=== PATIENT | female | born 1945 | race Caucasian/White ===

== ENCOUNTER 2018-06-06 22:47 | Emergency (ER) | payer OTHER ==
[~2018-06-06] VITALS: Ht 152.4 cm; Wt 71.2 kg
[~2018-06-06 22:47] MED LIST: ACETAMINOPHEN325 M1 PO; ALBUTEROL INH; ALPRAZOLAM1 M1 PO; AUGMENTIN 875875 M1 PO; CELEXA20 MG PO; FLAGYL500 MG PO; LASIX 20 MG TAB20 MG PO; LEVOXYL50 MCG; LISINOPRIL10 MG PO; METFORMIN HCL500 MG PO; PEPCID AC20 M1; POTASSIUM20 PO; TRAZODONE 150150 M1 PO
[2018-06-06] MEDS ORDERED: PRESERVISION A1 EAC2 (23:03)
[2018-06-06] MEDS ORDERED: CO Q-10100 MG (23:03)
[2018-06-06] MEDS ORDERED: VITAMIN D1000 UNI1 PO (23:04)
[2018-06-06] MEDS ORDERED: KEFLEX500 M1 PO (23:12)
[2018-06-06 23:29] VITALS: BP 140/77
== END 2018-06-06 23:31 | disposition home or self-care (01) ==
LOC: M.ERS 22:47
DX: S90.411A Abrasion, right great toe, initial encounter (principal); S90.412A Abrasion, left great toe, initial encounter; S90.414A Abrasion, right lesser toe(s), initial encounter; S90.415A Abrasion, left lesser toe(s), initial encounter; F32.9 Major depressive disorder, single episode, unspecified; E03.9 Hypothyroidism, unspecified; K21.9 Gastro-esophageal reflux disease without esophagitis; E11.9 Type 2 diabetes mellitus without complications; Z90.49 Acquired absence of other specified parts of digestive tract; Z90.710 Acquired absence of both cervix and uterus; Z88.8 Allergy status to other drugs, medicaments and biological substances; X58.XXXA Exposure to other specified factors, initial encounter; Y93.89 Activity, other specified; Y92.89 Other specified places as the place of occurrence of the external cause; Y99.8 Other external cause status

== ENCOUNTER 2018-11-12 08:35 | Emergency (ER) | payer OTHER ==
[~2018-11-12] VITALS: Ht 152.4 cm; Wt 61.7 kg
[~2018-11-12 08:35] MED LIST changes: +CO Q-10100 MG; +KEFLEX500 M1 PO; +PRESERVISION A1 EAC2; +VITAMIN D1000 UNI1 PO
[2018-11-12 09:07] LABS: ABSOLUTE LYMPHOCYTES 1.7 thou/uL (0.8-5.3); ABSOLUTE MONOCYTES 0.8 thou/uL (0.0-1.2); BASOPHILS 0.4 %; EOSINOPHILS 0.1 %; HEMATOCRIT 39.1 % (37.0-47.0); HEMOGLOBIN 13.2 gm/dL (12.0-15.0); LYMPHOCYTES 15.8 %; MCH 29.8 pg (26.0-34.0); MCHC 33.8 g/dL (28.0-37.0); MONOCYTES 7.2 %; MPV 8.2 fl. (7.2-11.1); NUCLEATED RBCS 0 /100WBC; PLATELET COUNT* 239 thou/uL (150-400); POLYS 76.5 %; RBC 4.44 mil/uL (4.20-5.00); RDW-CV 12.8 % (10.5-14.5); WBC 10.4 thou/uL (4.0-11.0)
[2018-11-12 09:18] LABS: ANION GAP 18 mmol/L (7-16); BUN 11 mg/dL (7-18); CALCIUM 9.6 mg/dL (8.5-10.1); CHLORIDE 96 mmol/L (98-107); CO2 20 mmol/L (21-32); CREATININE 0.7 mg/dL (0.6-1.3); GLUCOSE 123 mg/dL (70-99); SODIUM 134 mmol/L (136-145)
[2018-11-12 09:19] LABS: POTASSIUM 2.9 mmol/L (3.5-5.1)
[2018-11-12 09:24] LABS: ALCOHOL < 10 mg/dL (<10)
[2018-11-12 09:25] LABS: ALBUMIN 4.5 g/dL (3.4-5.0); ALKALINE PHOSPHATASE 62 U/L (46-116); LIPASE 67 U/L (73-393); SGOT 15 U/L (15-37); SGPT 18 U/L (30-65); TOTAL BILIRUBIN 1.4 mg/dL (<0.1-1.0); TOTAL PROTEIN 7.5 g/dL (6.4-8.2); TROPONIN-I LEVEL <0.06 ng/mL (<0.06)
[2018-11-12 09:27] LABS: ACETAMINOPHEN < 2 ug/mL (10-30); SALICYLATE < 2.8 mg/dL (2.8-20.0)
[2018-11-12 09:53] LABS: URINE BILIRUBIN NEGATIVE (Negative); URINE BLOOD TRACE (Negative); URINE CLARITY CLEAR; URINE COLOR YELLOW; URINE GLUCOSE-RANDOM NEGATIVE (Negative); URINE LEUKOCYTES-REFLEX NEGATIVE (Negative); URINE NITRITE-REFLEX NEGATIVE (Negative); URINE PROTEIN NEGATIVE (Negative); URINE UROBILINOGEN 0.2 E.U./dl (0.2-1.0)
[2018-11-12 09:55] LABS: URINE KETONES 3+ (Negative)
[2018-11-12 09:59] LABS: AMP/METHAMP Negative (Negative); BARBITURATES Negative (Negative); BENZODIAZEPINES Negative (Negative); COCAINE Negative (Negative); METHADONE Negative (Negative); OPIATES Negative (Negative); PCP Negative (Negative); THC Negative (Negative)
[2018-11-12 12:54] LABS: CALCIUM 9.2 mg/dL (8.5-10.1); CREATININE 0.6 mg/dL (0.6-1.3); POTASSIUM 3.4 mmol/L (3.5-5.1)
[2018-11-12 18:37] VITALS: BP 108/56
--- NOTE | 2018-11-13 10:22 | EKG ---
[place] [address] ELECTROCARDIOGRAM REPORT Name: PATI HOANG Room: [facility]#: [id number] Admission: 11/12/18 Attend Phys: Discharge: 11/12/18 Date of : 41 Report #: [id number] THIS REPORT FOR: //name// [facility] ED Test Date: 2018-11-12 Test Time: 08:51:25 Pat Name: PATI HOANG Department: Room: Gender: F Exam Proctor: VASQUEZ : 1945 Requested By: Durga Sorensen Order Number: [id number] MD: Yoandy Bean Measurements Intervals Spencer Rate: 73 P: 49 GA: 162 QRS: -42 QRSD: 117 T: 57 QT: 427 QTc: 471 Interpretive Statements Sinus rhythm LVH with secondary repolarization abnormality Anterior ST elevation, probably due to LVH Baseline wander in lead(s) V2 Compared to ECG 08/12/2017 20:22:33 no change Electronically Signed On 11-13-2018 10:21:55 [employer] by Yoandy Bean [email or web address] <ELECTRONICALLY SIGNED> By: Yoandy Bean MD, [facility] 11/13/18 1021 0851 [id number] Yoandy Bean MD, [facility] /EPI
== END 2018-11-12 18:45 ==
LOC: M.ERS 08:35
PROVIDERS: Emergency Medicine Emergency Medical Services
DX: F22 Delusional disorders (principal); R11.2 Nausea with vomiting, unspecified; E11.9 Type 2 diabetes mellitus without complications; K21.9 Gastro-esophageal reflux disease without esophagitis; F32.9 Major depressive disorder, single episode, unspecified; Z88.8 Allergy status to other drugs, medicaments and biological substances; Z90.49 Acquired absence of other specified parts of digestive tract; Z90.710 Acquired absence of both cervix and uterus; Z79.899 Other long term (current) drug therapy

== ENCOUNTER 2021-04-21 13:36 | Emergency (ER) | payer MEDICARE ==
[~2021-04-21] VITALS: Ht 152.4 cm; Wt 68.0 kg
[2021-04-21 13:44] VITALS: BP 151/96
== END 2021-04-21 14:06 ==
LOC: M.ERS 13:36
DX: Z13.1 Encounter for screening for diabetes mellitus (principal); E03.9 Hypothyroidism, unspecified; E11.9 Type 2 diabetes mellitus without complications; K21.9 Gastro-esophageal reflux disease without esophagitis; Z90.49 Acquired absence of other specified parts of digestive tract; Z90.710 Acquired absence of both cervix and uterus; Z98.890 Other specified postprocedural states; Z79.899 Other long term (current) drug therapy; Z88.8 Allergy status to other drugs, medicaments and biological substances

== ENCOUNTER 2021-06-14 23:35 | Emergency (ER) | payer MEDICARE ==
[~2021-06-14] VITALS: Ht 165.1 cm; Wt 71.2 kg
[2021-06-15 00:22] LABS: CALCIUM 9.1 mg/dL (8.5-10.1); CREATININE 0.7 mg/dL (0.6-1.3); POTASSIUM 3.7 mmol/L (3.5-5.1)
[2021-06-15 00:26] LABS: ABSOLUTE BASOPHILS 0.1 thou/uL (0.0-0.2); ABSOLUTE EOSINOPHILS 0.3 thou/uL (0.0-0.7); ABSOLUTE LYMPHOCYTES 2.3 thou/uL (0.8-5.3); ABSOLUTE MONOCYTES 0.6 thou/uL (0.0-1.2); ABSOLUTE NEUTROPHILS 3.8 thou/uL (1.6-8.1); BASOPHILS 0.9 %; EOSINOPHILS 3.6 %; HEMATOCRIT 36.4 % (37.0-47.0); HEMOGLOBIN 11.8 gm/dL (12.0-15.0); MAGNESIUM 1.5 mg/dL (1.8-2.4); MCH 27.1 pg (26.0-34.0); MCHC 32.3 g/dL (28.0-37.0); MCV 83.9 fL (80.0-100.0); MPV 7.6 fl. (7.2-11.1); NUCLEATED RBCS 0 /100WBC; PLATELET COUNT* 232 thou/uL (150-400); POLYS 54.5 %; RBC 4.34 mil/uL (4.20-5.00); RDW-CV 14.2 % (10.5-14.5); TOTAL BILIRUBIN 0.2 mg/dL (<0.1-1.0); TOTAL PROTEIN 6.9 g/dL (6.4-8.2)
[2021-06-15 00:33] LABS: ACETAMINOPHEN < 2 ug/mL (10-30); SALICYLATE < 2.8 mg/dL (2.8-20.0)
[2021-06-15 02:42] LABS: URINE BILIRUBIN NEGATIVE (Negative); URINE BLOOD TRACE (Negative); URINE CLARITY CLEAR; URINE COLOR YELLOW; URINE GLUCOSE-RANDOM NEGATIVE (Negative); URINE KETONES NEGATIVE (Negative); URINE LEUKOCYTES-REFLEX TRACE (Negative); URINE NITRITE-REFLEX NEGATIVE (Negative); URINE PROTEIN NEGATIVE (Negative); URINE SPECIFIC GRAVITY 1.015 (1.005-1.030); URINE UROBILINOGEN 0.2 E.U./dl (0.2-1.0)
[2021-06-15 02:48] LABS: AMP/METHAMP Negative (Negative); BARBITURATES Negative (Negative); BENZODIAZEPINES POSITIVE (Negative); COCAINE Negative (Negative); METHADONE Negative (Negative); OPIATES Negative (Negative); PCP Negative (Negative); THC Negative (Negative)
[2021-06-15 03:36] LABS: HYALINE CASTS 0-3 Few /LPF (None Seen); SQUAMOUS 0-3 Few /LPF (0-3); URINE RBC 3-10 Few /HPF (0-2); URINE WBC-REFLEX 0-5 Rare /HPF (0-5)
[2021-06-15 03:37] LABS: BACTERIA-REFLEX 1-9 Few /HPF (None Seen); CRYSTALS None Seen /LPF (None Seen)
[2021-06-15 18:25] VITALS: BP 156/70
== END 2021-06-15 18:40 | disposition home or self-care (01) ==
LOC: M.ERS 23:35
PROVIDERS: Emergency Medicine
DX: F29 Unspecified psychosis not due to a substance or known physiological condition (principal); Z20.822 Contact with and (suspected) exposure to COVID-19; R41.82 Altered mental status, unspecified; F32.9 Major depressive disorder, single episode, unspecified; E03.9 Hypothyroidism, unspecified; K21.9 Gastro-esophageal reflux disease without esophagitis; E11.9 Type 2 diabetes mellitus without complications; Z90.49 Acquired absence of other specified parts of digestive tract; Z90.710 Acquired absence of both cervix and uterus; Z79.899 Other long term (current) drug therapy; Z88.1 Allergy status to other antibiotic agents